=== PATIENT | male | born 1950 | race Caucasian/White ===

== ENCOUNTER 2018-03-09 08:58 | Outpatient (CLI) | payer OTHER ==
[2018-03-09 10:53] LABS: #Basophils 0.1 thou/uL (0.0-0.2); #Eosinphils 0.2 thou/uL (0.0-0.7); #Lymphocytes 2.3 thou/uL (1.20-3.40); #Monocytes 0.8 thou/uL (0.11-0.59); #Neutrophils 5.1 thou/uL (1.40-6.50); %Basophils 0.7 % (0.0-1.0); %Eosinophils 2.2 % (0.0-10.0); %Lymphocytes 26.9 % (21.0-51.0); %Monocytes 9.8 % (0.0-10.0); %Neutrophils 60.3 % (42.0-75.0); Hemoglobin 14.1 g/dL (14.0-18.0); Mean Corpuscular HGB CONC 33.2 g/dL (32.0-36.0); Mean Corpuscular Hemoglobin 31.8 pg (27.0-31.0); Mean Corpuscular Volume 95.6 fL (78.0-98.0); Mean Platelet Volume 9.2 fL (7.4-10.4); Platelet Count 244 thou/uL (130-400); RBC Distribution Width 11.2 % (11.5-14.5); Red Blood Cell (RBC) Count 4.45 mill/uL (4.70-6.10); White Blood Cell (WBC) Count 8.4 thou/uL (4.8-10.8)
[2018-03-09 10:57] LABS: PTT 28.4 SEC (22.9-36.1); Prothrombin Time 13.7 SEC (12.0-14.7)
[2018-03-09 11:09] LABS: Anion Gap 9 mmol/L (10-20); BUN (Urea Nitrogen) 16 mg/dL (8.4-25.7); Calc. Creatinine Clearance 0 mL/min (70-130); Calcium 9.4 mg/dL (7.8-10.44); Carbon Dioxide 22 mmol/L (23-31); Chloride 110 mmol/L (98-107); Estimated GFR-MDRD Greater than 90; Glucose 94 mg/dL (80-115); Potassium 4.2 mmol/L (3.5-5.1); Sodium 137 mmol/L (136-145)
[2018-03-09 11:53] LABS: Bilirubin Negative (Negative); Blood, Urine Negative (Negative); Clarity CLEAR (Clear); Glucose, Urine (Dipstick) Negative (Negative); Leukocyte Negative (Negative); Nitrite Negative (Negative); Protein, Urine (Dipstick) Negative (Neg-Trace); Specific Gravity, Urine 1.022 (1.002-1.036); Urobilinogen 0.2 mg/dL (0.2-1.0); pH, Urine 5.5 (5.0-9.0)
[2018-03-09 11:55] LABS: Bacteria/HPF None Seen HPF (None Seen); Hyaline Casts/LPF 0-3 HYALINE CAST LPF (0-3 Hyaline); Squamous Epithelial None Seen HPF (0-3); WBC/HPF 0-3 HPF (0-3)
--- NOTE | 2018-03-15 21:10 | EKG ---
Test Reason : Blood Pressure : / mmHG Vent. Rate : 082 BPM Atrial Rate : 082 BPM P-R Int : 134 ms QRS Dur : 080 ms QT Int : 364 ms P-R-T Axes : 062 056 052 degrees QTc Int : 425 ms Normal sinus rhythm Normal ECG No previous ECGs available Confirmed by ASHVIN SANCHEZ (2) on 03/15/2018 9:09:41 PM Referred By: CHING Confirmed By:ASHVIN SANCHEZ
== END 2018-03-09 08:59 | disposition home or self-care (01) ==
LOC: LABBT 08:58
PROVIDERS: ATTEND Urology
DX: Z01.818 Encounter for other preprocedural examination (principal); N40.1 Benign prostatic hyperplasia with lower urinary tract symptoms; R33.9 Retention of urine, unspecified; R39.12 Poor urinary stream; N52.01 Erectile dysfunction due to arterial insufficiency
CPT/HCPCS: 80048; 81001; 85025; 85610; 85730; 87086; 93005; 93010

== ENCOUNTER 2018-03-17 10:10 | Observation (INO) | payer OTHER ==
[2018-03-09 09:30] VITALS: BMI 25.6
[2018-03-17] MEDS ORDERED: Levofloxacin 500 mg/D5W 100 ml Premix Bag ONE (11:53)
[2018-03-17] MEDS ORDERED: Fentanyl 100 MCG/2 ML VIAL ONE (13:08)
[2018-03-17] MEDS ORDERED: PACU-Morphine 4MG/ML VIAL SLOW IVP PRN (13:59)
[2018-03-17] MEDS ORDERED: HYDROmorphone 2 MG/ML VIAL SLOW IVP PRN (13:59)
[2018-03-17] MEDS ORDERED: Promethazine HCl 25 MG/ML VIAL SLOW IVP PRN (13:59)
[2018-03-17] MEDS ORDERED: Meperidine HCl/PF 25 MG/ML VIAL SLOW IVP PRN (13:59)
[2018-03-17] MEDS ORDERED: Promethazine HCl 25 MG/ML VIAL IM PRN (13:59)
[2018-03-17] MEDS ORDERED: Morphine Sulfate 2 MG/ML SYRINGE SLOW IVP PRN (13:59)
[2018-03-17] MEDS ORDERED: Ondansetron HCl/PF 4 MG/2 ML Vial IVP PRN (13:59)
[2018-03-17] MEDS ORDERED: B & O ONE (14:19)
[2018-03-17] MEDS ORDERED: Morphine 2 MG/ML SYRINGE IVP PRN (14:32)
[2018-03-17] MEDS ORDERED: Ondansetron PF 4 MG/2 ML Vial IVP PRN (14:32)
[2018-03-17] MEDS ORDERED: Oxybutynin 5 MG TAB PO PRN (14:32)
[2018-03-17] MEDS ORDERED: Acetaminophen 500 MG TAB PO PRN (14:32)
[2018-03-17] MEDS ORDERED: Bisacodyl 10 MG SUPP PR PRN (14:32)
[2018-03-17] MEDS ORDERED: diphenhydrAMINE 25 MG CAP PO PRN (14:32)
[2018-03-17] MEDS ORDERED: Mag-Al 1200 mg/1200 mg/30 ML UDCUP PO PRN (14:32)
[2018-03-17] MEDS ORDERED: hydrALAZINE 20 MG/ML VIAL SLOW IVP PRN (14:32)
[2018-03-17] MEDS ORDERED: Hyoscyamine Sulfate SL 0.125 mg Tablet SL PRN (14:32)
[2018-03-17] MEDS ORDERED: traMADol HCl 50 MG TAB PO PRN (14:34)
[2018-03-17] MEDS ORDERED: PHENYLEPHRINE-NS 100 MCG/ML 10 ML SYRINGE ONE (16:31)
[2018-03-17] MEDS ORDERED: ePHEDrine/0.9% NaCl/PF SYRINGE 50 mg/10 ml ONE (16:31)
[2018-03-17] MEDS ORDERED: Dexamethasone 20 MG/5 ML VIAL ONE (16:31)
[2018-03-17] MEDS ORDERED: Ondansetron PF 4 MG/2 ML Vial ONE (16:31)
[2018-03-17] MEDS ORDERED: PROPOFOL 200 MG/20 ML VIAL ONE (16:31)
[2018-03-17] MEDS ORDERED: HYDROcodone/Acetaminophen 5/325 mg Tablet PO PRN (18:05)
[2018-03-17] MEDS: Docusate 100 MG CAP PO SCH (21:27)
[2018-03-18 04:37] LABS: #Monocytes 0.2 thou/uL (0.11-0.59); #Neutrophils 9.6 thou/uL (1.40-6.50); %Basophils 0.1 % (0.0-1.0); %Eosinophils 0.2 % (0.0-10.0); %Lymphocytes 9.2 % (21.0-51.0); %Monocytes 2.2 % (0.0-10.0); %Neutrophils 88.4 % (42.0-75.0); Hemoglobin 13.6 g/dL (14.0-18.0); Mean Corpuscular Hemoglobin 32.2 pg (27.0-31.0); Mean Corpuscular Volume 94.8 fL (78.0-98.0); Mean Platelet Volume 8.9 fL (7.4-10.4); Platelet Count 231 thou/uL (130-400); RBC Distribution Width 11.3 % (11.5-14.5); Red Blood Cell (RBC) Count 4.23 mill/uL (4.70-6.10); White Blood Cell (WBC) Count 10.9 thou/uL (4.8-10.8)
[2018-03-18 04:55] LABS: Anion Gap 11 mmol/L (10-20); BUN (Urea Nitrogen) 19 mg/dL (8.4-25.7); Calc. Creatinine Clearance 102 mL/min (70-130); Calcium 9.2 mg/dL (7.8-10.44); Carbon Dioxide 24 mmol/L (23-31); Chloride 105 mmol/L (98-107); Estimated GFR-MDRD 90; Glucose 153 mg/dL (80-115); Potassium 4.7 mmol/L (3.5-5.1); Sodium 135 mmol/L (136-145)
[2018-03-18] MEDS ORDERED: Levothyroxine Sodium 25 MCG TAB PO SCH (06:00)
[2018-03-18] MEDS ORDERED: Levothyroxine Sodium 112 MCG TAB PO SCH (06:00)
[2018-03-18] MEDS: Docusate 100 MG CAP PO SCH (08:06)
--- NOTE | 2018-03-18 08:12 | OP ---
DATE OF PROCEDURE: 03/17/2018 SERVICE: Urology. SURGEON: Bradley Merritt M.D. PREOPERATIVE DIAGNOSIS: Benign prostatic hypertrophy with urinary retention. POSTOPERATIVE DIAGNOSIS: Benign prostatic hypertrophy with urinary retention. PROCEDURE PERFORMED: Transurethral vaporization of prostate. INDICATIONS FOR PROCEDURE: Mr. Salazar is a 67-year-old white male with BPH and significant urinary s ymptoms which are not completely controlled with oral medications. He is still not able to completel y empty his bladder. Out of concern for possible myogenic bladder failure in the future and worsenin g symptoms he has elected to go forward with transurethral vaporization of prostate. All risks and b enefits have been discussed and he has agreed to proceed forward. DESCRIPTION OF PROCEDURE: After identification of armband and verification of consent, the patient w as brought to the operating room where he underwent general anesthesia with an LMA. He was then plac ed in dorsal lithotomy position and prepped and draped in usual sterile fashion. After appropriate t imeout, a lubricated 26 Belgian resectoscope sheath with visual obturator was passed easily through th e urethra into the prostate which was significantly hypertrophic with a large median lobe. The bladd er was otherwise unremarkable. The visual obturator was then switched out for the bipolar gyrus butt on electrode for prostate vaporization. Both ureters were identified within the bladder to be far aw ay from the median lobe. Vaporization was started on the median lobe down to the bladder neck. Once the median lobe was fully vaporized the prostate was then circumferentially vaporized to near the pr ostatic capsule until the bladder neck was completely open. Relaxing incisions were made at 5 and 7 o'clock during the procedure to further open the bladder neck, all intervening tissue was vaporized. Upon completion, the prostate was wide open. Meticulous hemostasis was performed with the coag func tion of the bipolar. Once completely dried, the bladder was evacuated to ensure that there was no ad ditional bleeding and very little was encountered which was further cauterized. Upon final inspectio n, there was no bleeding even with the bladder decompressed. Satisfied, the bladder was refilled and the resectoscope removed. A 22 Belgian 2-way Moody catheter was placed with ease into the patient's bladder and CBI initiated with 30 mL of sterile water placed in the balloon. The patient was then ta delvis out of lithotomy, had a StatLock affixed and a 16-A B&O suppository was placed in his rectum. He was then awakened and taken to PACU for recovery in stable condition. COMPLICATIONS: None. ESTIMATED BLOOD LOSS: Minimal. RETAINED TUBES AND DRAINS: A 22-Belgian three-way Moody catheter on CBI. SPECIMENS: None. DISPOSITION: The patient will be kept in the hospital overnight for observation and CBI. We will pl an to void trial in the morning and then discharge home.
[2018-03-18] MEDS ORDERED: Potassium [Potassium] 99 MG PO SCH (09:00)
[2018-03-18] MEDS ORDERED: Amlodipine 5 MG TAB PO SCH (09:00)
[2018-03-18] MEDS ORDERED: Non-Formulary Item 1 EACH (Levothyroxine Sodium [Levothyroxine Sodium] 137 MCG) PO SCH (09:00)
[2018-03-18 11:35] VITALS: BP 145/82; TEMP 97.9
--- NOTE | 2018-03-19 11:54 | DIS ---
DATE OF ADMISSION: 03/17/2018 DATE OF DISCHARGE: 03/18/2018 ADMITTING DIAGNOSIS: BPH. DISCHARGE DIAGNOSIS: BPH. ADMITTING PHYSICIAN: Dr. Merritt. DISCHARGING PHYSICIAN: Dr. Merritt. PROCEDURE PERFORMED: Transurethral vaporization of the prostate. BRIEF HISTORY: Mr. Salazar is a 67-year-old white male with BPH and significant urinary symptoms. He did not want to be on medical therapy anymore and is concerned about progressive worsening of his bladder function. He is elected to go forward with surgical intervention of his prostate via vaporization. Risks and benefits have been discussed. Please see full H and P and scan in the [email or web address] for details. Hospital course after surgery (please see operative note for details). The patient was kept in the hospital overnight on CBI. His urine was relatively clear in the morning and he underwent a voiding trial, in which he was able to urinate. On subsequent void, his urine was not very bloody and he was felt to be stable for discharge. He was discharged home after all instructions have been discussed. DISPOSITION: Discharged to home. DISCHARGE INSTRUCTIONS: No heavy lifting. No strenuous activity. Avoid constipation. Drink plenty of fluids. He should notify me for heavy bleeding, inability to urinate, significant clots or any other concerning signs and symptoms he may have. DISCHARGE MEDICATIONS: Please see MAR. FOLLOWUP: Will be in 1 to 2 weeks for a postop check. Job ID: [id number]
== END 2018-03-18 15:05 | disposition home or self-care (01) ==
LOC: SDC 10:10 → SURG A 18:20
PROVIDERS: ADMIT Urology; ATTEND Urology
PROC: 0VT08ZZ Resection of Prostate, Via Natural or Artificial Opening Endoscopic (ICD-10-PCS; principal; 2018-03-17)
DX: N40.1 Benign prostatic hyperplasia with lower urinary tract symptoms (principal); R33.8 Other retention of urine; R39.14 Feeling of incomplete bladder emptying; I10 Essential (primary) hypertension; E03.9 Hypothyroidism, unspecified; Z79.899 Other long term (current) drug therapy
CPT/HCPCS: 36415; 80048; 85025; G0378; J1100; J1956; J2405; J2704; J3010

== ENCOUNTER 2020-12-16 17:56 | Inpatient (IN) | payer BC, MEDICARE ==
[2020-12-16] MEDS ORDERED: GoLYTELY 4,000 ml Bottle PO SCH (19:00)
[2020-12-16 19:09] LABS: #Eosinphils 0.3 thou/uL (0.0-0.7); #Lymphocytes 3.7 thou/uL (1.20-3.40); #Neutrophils 6.2 thou/uL (1.40-6.50); %Basophils 0.4 % (0.0-1.0); %Eosinophils 2.3 % (0.0-10.0); %Lymphocytes 32.8 % (21.0-51.0); %Monocytes 8.7 % (0.0-10.0); %Neutrophils 55.8 % (42.0-75.0); Hemoglobin 10.2 g/dL (14.0-18.0); Mean Corpuscular HGB CONC 36.3 g/dL (32.0-36.0); Mean Corpuscular Hemoglobin 34.8 pg (27.0-31.0); Mean Corpuscular Volume 95.9 fL (78.0-98.0); Mean Platelet Volume 8.2 fL (7.4-10.4); Platelet Count 211 thou/uL (130-400); RBC Distribution Width 11.2 % (11.5-14.5); Red Blood Cell (RBC) Count 2.94 mill/uL (4.70-6.10); White Blood Cell (WBC) Count 11.1 thou/uL (4.8-10.8)
[2020-12-16 19:30] LABS: ALT (SGPT) 12 U/L (8-55); AST (SGOT) 19 U/L (5-34); Albumin 3.3 g/dL (3.4-4.8); Alkaline Phosphatase 69 U/L (40-110); Anion Gap 11 mmol/L (10-20); BUN (Urea Nitrogen) 18 mg/dL (8.4-25.7); Bilirubin, Total 0.2 mg/dL (0.2-1.2); Calc. Creatinine Clearance 0 mL/min (70-130); Calcium 8.7 mg/dL (7.8-10.44); Carbon Dioxide 20 mmol/L (23-31); Chloride 107 mmol/L (98-107); Globulin 1.9 g/dL (2.4-3.5); Glucose 104 mg/dL (80-115); Potassium 4.1 mmol/L (3.5-5.1); Protein, Total 5.2 g/dL (5.8-8.1); Sodium 134 mmol/L (136-145)
[2020-12-16 20:25] LABS: SARS-CoV-2 NAA Rapid Test Not Detected (NotDetected)
[2020-12-16] MEDS ORDERED: Ondansetron PF 4 MG/2 ML Vial IVP PRN (21:18)
[2020-12-16] MEDS ORDERED: Zolpidem Tartrate 5 MG TAB PO PRN (21:18)
[2020-12-16] MEDS: Sodium Chloride 0.9% 1,000 ML IV SCH (22:59)
[2020-12-16 23:05] VITALS: BMI 26.8
[2020-12-17 02:54] LABS: Anion Gap 12 mmol/L (10-20); BUN (Urea Nitrogen) 14 mg/dL (8.4-25.7); Calc. Creatinine Clearance 106 mL/min (70-130); Calcium 8.6 mg/dL (7.8-10.44); Carbon Dioxide 24 mmol/L (23-31); Chloride 110 mmol/L (98-107); Glucose 99 mg/dL (80-115); Potassium 4.6 mmol/L (3.5-5.1); Sodium 141 mmol/L (136-145)
[2020-12-17 04:57] LABS: Hemoglobin 9.2 g/dL (14.0-18.0)
[2020-12-17] MEDS ORDERED: Levothyroxine Sodium 112 MCG TAB PO SCH (06:00)
[2020-12-17] MEDS ORDERED: Levothyroxine Sodium 25 MCG TAB PO SCH (06:00)
[2020-12-17] MEDS ORDERED: GUAIFENESIN SF SOLN 200 MG/10 ML UDCUP PO PRN (07:40)
[2020-12-17] MEDS ORDERED: Benzonatate 100 MG CAP PO PRN (07:40)
[2020-12-17] MEDS ORDERED: Loratadine 10 MG TAB PO PRN (07:40)
[2020-12-17] MEDS ORDERED: Hydrocerin (Eucerin) Cream 120 gm Jar TOP PRN (07:40)
[2020-12-17] MEDS ORDERED: hydrALAZINE 20 MG/ML VIAL SLOW IVP PRN (07:40)
[2020-12-17] MEDS ORDERED: Bisacodyl 5 MG TAB PO PRN (07:40)
[2020-12-17] MEDS ORDERED: Cepastat Lozenges 1 LOZ PO PRN (07:40)
[2020-12-17] MEDS ORDERED: Calcium Carbonate 500 MG ChewTAB PO PRN (07:40)
[2020-12-17] MEDS ORDERED: Artificial Tear Sol 15 ML BOT EA EYE PRN (07:40)
[2020-12-17] MEDS ORDERED: Sodium Chloride 0.65% Nasal 44 ML BOT EA NARE PRN (07:40)
[2020-12-17] MEDS ORDERED: Senokot S 8.6-50 MG TAB PO PRN (07:40)
[2020-12-17] MEDS ORDERED: HYDROcodone/Acetaminophen 5/325 mg Tablet PO PRN (07:40)
[2020-12-17] MEDS ORDERED: Loperamide HCl 2 MG CAP PO PRN (07:40)
[2020-12-17] MEDS ORDERED: PROPOFOL 200 MG/20 ML VIAL ONE (08:13)
[2020-12-17] MEDS ORDERED: Lidocaine 1% PF 5 ML VIAL ONE (08:13)
[2020-12-17] MEDS ORDERED: Famotidine 20 MG TAB PO SCH (09:00)
[2020-12-17] MEDS ORDERED: Dronedarone HCl 400 MG TAB PO SCH (09:00)
[2020-12-17] MEDS ORDERED: Amlodipine 5 MG TAB PO SCH (09:00)
[2020-12-17 09:38] VITALS: BP 139/74
[2020-12-17 10:06] VITALS: TEMP 98.2
[2020-12-17 10:34] LABS: Hemoglobin 9.9 g/dL (14.0-18.0)
[2020-12-17] MEDS: Sodium Chloride 0.9% 1,000 ML IV SCH (12:07)
== END 2020-12-17 11:55 | disposition home or self-care (01) | DRG 920 ==
LOC: ERS 17:56 → 2NO 20:21
PROVIDERS: ADMIT Student in an Organized Health Care Education/Training Program; ATTEND Internal Medicine
PROC: 0W3P8ZZ Control Bleeding in Gastrointestinal Tract, Via Natural or Artificial Opening Endoscopic (ICD-10-PCS; principal; 2020-12-17)
PROC: 0DBH8ZZ Excision of Cecum, Via Natural or Artificial Opening Endoscopic (ICD-10-PCS; 2020-12-17)
DX: K91.840 Postprocedural hemorrhage of a digestive system organ or structure following a digestive system procedure (principal); D62 Acute posthemorrhagic anemia; Z20.822 Contact with and (suspected) exposure to COVID-19; I10 Essential (primary) hypertension; E03.9 Hypothyroidism, unspecified; Z96.651 Presence of right artificial knee joint; I48.91 Unspecified atrial fibrillation; E78.5 Hyperlipidemia, unspecified; E79.0 Hyperuricemia without signs of inflammatory arthritis and tophaceous disease; Y83.8 Other surgical procedures as the cause of abnormal reaction of the patient, or of later complication, without mention of misadventure at the time of the procedure; K57.30 Diverticulosis of large intestine without perforation or abscess without bleeding; K63.5 Polyp of colon; I48.0 Paroxysmal atrial fibrillation; Z79.01 Long term (current) use of anticoagulants; Z79.899 Other long term (current) drug therapy; Z79.890 Hormone replacement therapy
CPT/HCPCS: 36415; 80048; 80053; 85014; 85018; 85025; 86850; 86900; 86901; 88305; 93005; J2704; J7050; U0002

== ENCOUNTER 2021-06-11 08:51 | Outpatient (CLI) | payer BC | END 2021-06-11 08:52 | disposition home or self-care (01) | LOC: BICRAD 08:51 | PROVIDERS: ATTEND Family Medicine | DX: R05.3 Chronic cough (principal) | CPT/HCPCS: 71046 ==

== ENCOUNTER 2021-12-05 14:52 | Outpatient (CLI) | payer BC ==
[2021-12-05 15:59] LABS: #Eosinphils 0.2 10x3/uL (0.0-0.5); #Monocytes 0.8 10x3/uL (0.0-1.1); #Neutrophils 4.8 10x3/uL (1.5-8.4); %Basophils 0.4 % (0.0-2.0); %Eosinophils 2.2 % (0.0-6.0); %Lymphocytes 28.9 % (18.0-47.0); %Monocytes 10.1 % (0.0-10.0); %Neutrophils 57.9 % (40.0-75.0); Hemoglobin 13.7 g/dL (13.5-17.5); Mean Corpuscular HGB CONC 34.7 g/dL (32.0-36.0); Mean Corpuscular Hemoglobin 32.9 pg (27.0-33.0); Mean Corpuscular Volume 94.7 fl (81.2-95.1); Mean Platelet Volume 11.5 fl (7.4-10.4); Platelet Count 249 10x3/uL (150-450); RBC Distribution Width 12.2 % (11.5-14.5); Red Blood Cell (RBC) Count 4.17 10x6/uL (4.32-5.72); White Blood Cell (WBC) Count 8.3 10x3/uL (3.5-10.5)
[2021-12-05 16:07] LABS: Anion Gap 11 mmol/L (10-20); BUN (Urea Nitrogen) 20 mg/dL (8.4-25.7); Calc. Creatinine Clearance 0 mL/min (70-130); Calcium 9.6 mg/dL (7.8-10.44); Carbon Dioxide 25 mmol/L (23-31); Chloride 106 mmol/L (98-107); Estimated GFR 95; Glucose 95 mg/dL (83-110); Potassium 4.3 mmol/L (3.5-5.1); Sodium 138 mmol/L (136-145)
== END 2021-12-05 14:53 | disposition home or self-care (01) ==
LOC: LABBT 14:52
PROVIDERS: ATTEND Specialist
DX: Z01.818 Encounter for other preprocedural examination (principal); Z20.822 Contact with and (suspected) exposure to COVID-19
CPT/HCPCS: 80048; 85025; 87811; 93005; 93010

== ENCOUNTER → 2021-12-07 | Day surgery (SDC) | payer BC ==
[2021-12-05 15:05] VITALS: BMI 27.1
[~2021-12-07] MED LIST: Acetaminophen 500 MG TAB ONE; Bupivacaine/Epinephrine 0.25% 30 ML VIAL ONE; CEFAZOLIN 2 GM VIAL ONE; Dexamethasone 20 MG/5 ML VIAL ONE; Gabapentin 300 MG CAP ONE; Glycopyrrolate 0.2 MG/ML 5 ML SYRINGE ONE; HYDROcodone/Acetaminophen 5/325 mg Tablet ONE; Ketorolac Tromethamine 30 MG/ML VIAL ONE; Lidocaine 1% PF 5 ML VIAL ONE; Neostigmine Methylsulfate 3 MG/3 ML SYRINGE ONE; Ondansetron PF 4 MG/2 ML Vial ONE; PROPOFOL 200 MG/20 ML VIAL ONE; Phenylephrine 10 MG/ML VIAL ONE; Rocuronium Bromide 10 MG/ML (10ML VIAL) ONE; Scopolamine 1.5 mg/72 hour Patch ONE; Sodium Chloride 0.9% 100 ML ONE; Tamsulosin HCl 0.4 MG CAP ONE; ePHEDrine 50 MG/ML VIAL ONE; fentaNYL Citrate/PF 100 MCG/2 ML SYRINGE ONE
== END ==
LOC: SDC 05:55
PROVIDERS: ATTEND Specialist
PROC: 0YUA4JZ Supplement Bilateral Inguinal Region with Synthetic Substitute, Percutaneous Endoscopic Approach (ICD-10-PCS; principal; 2021-12-07)
DX: K40.20 Bilateral inguinal hernia, without obstruction or gangrene, not specified as recurrent (principal); E03.9 Hypothyroidism, unspecified; I10 Essential (primary) hypertension; I48.0 Paroxysmal atrial fibrillation; N40.0 Benign prostatic hyperplasia without lower urinary tract symptoms; Z79.01 Long term (current) use of anticoagulants; Z79.890 Hormone replacement therapy; Z79.899 Other long term (current) drug therapy; Z88.8 Allergy status to other drugs, medicaments and biological substances
CPT/HCPCS: C1781; J0690; J1885; J3490

== ENCOUNTER 2022-01-25 09:33 | Outpatient (CLI) | payer BC | END 2022-01-25 09:34 | disposition home or self-care (01) | LOC: BICRAD 09:33 | PROVIDERS: ATTEND Internal Medicine Cardiovascular Disease | DX: R06.02 Shortness of breath (principal); R06.00 Dyspnea, unspecified; Z98.890 Other specified postprocedural states | CPT/HCPCS: 71046 ==

== ENCOUNTER 2023-02-17 17:00 | Outpatient (CLI) | payer BC, MEDICARE | END 2023-02-17 17:01 | disposition home or self-care (01) | LOC: SLEEPLAB 17:00 | PROVIDERS: ATTEND Family Medicine | DX: G47.33 Obstructive sleep apnea (adult) (pediatric) (principal); G47.00 Insomnia, unspecified; R06.83 Snoring; E66.9 Obesity, unspecified; I10 Essential (primary) hypertension; R53.83 Other fatigue | CPT/HCPCS: 95800 ==